=== PATIENT | female | born 1995 | race Caucasian/White ===

== ENCOUNTER 2016-10-27 10:48 | Emergency (ER) | payer BC ==
[2016-10-27 11:14] VITALS: BP 129/73
--- NOTE | 2016-10-27 11:21 | UC ---
Respiratory Complaint HPI - HPI Summary HPI Summary: cough and wheeze not much relief with nebulizer and Mdi---no fevers are chills - History of Current Complaint Chief Complaint: UCRespiratory Stated Complaint: ASTHMA Time Seen by Provider: 10/27/16 11:19 Hx Obtained From: Patient Hx Last Menstrual Period: 10/13/16 ?: No Onset/Duration: Gradual Onset, Lasting Days, Still Present Timing: Constant Severity Initially: Mild Severity Currently: Moderate Character: Cough: Nonproductive Aggravating Factors: Allergens, Exertion Alleviating Factors: Bronchodilator - minimal relief Associated Signs And Symptoms: Positive: Pleuritic Chest Pain, Wheezing - Allergies/Home Medications Allergies/Adverse Reactions: Allergies Allergy/AdvReac Type Severity Reaction Status Date / Time hpv vaccine Allergy Intermediate Hives Uncoded 10/27/16 11:08 Home Medications: Home Medications Ibuprofen [Advil] 800 mg PO Q8HR PRN 10/27/16 [History Confirmed 10/27/16] PMH/Surg Hx/FS Hx/Imm Hx Previously Healthy: No Respiratory History Of: Reports: Asthma - Surgical History Surgical History: None Surgery Procedure, Year, and Place: right eye surgery - Family History Known Family History: Positive: None Family History: no cardio vascular issues in family lineage - Social History Occupation: Student Lives: With Family Alcohol Use: Occasionally Substance Use Type: None Smoking Status (MU): Never Smoked Tobacco Household Exposure Type: Cigarettes Review of Systems Constitutional: Negative Skin: Negative Eyes: Negative ENT: Negative Respiratory: Cough Cardiovascular: Negative Gastrointestinal: Negative Genitourinary: Negative Motor: Negative Neurovascular: Negative Musculoskeletal: Negative Neurological: Negative Psychological: Negative All Other Systems Reviewed And Are Negative: Yes Physical Exam Triage Information Reviewed: Yes Appearance: Well-Appearing, No Pain Distress, Well-Nourished Vital Signs: Initial Vital Signs Temp 98.7 F 10/27/16 11:10 Pulse 102 10/27/16 11:10 Resp 16 10/27/16 11:10 BP 129/73 10/27/16 11:10 Pulse Ox 98 10/27/16 11:10 Vital Signs Reviewed: Yes Eye Exam: Normal Eyes: Positive: Conjunctiva Clear ENT Exam: Normal ENT: Positive: Normal ENT inspection, Hearing grossly normal, Pharynx normal, TMs normal. Negative: Nasal congestion, Nasal drainage, Tonsillar swelling, Tonsillar exudate, Trismus, Muffled/hoarse voice Dental Exam: Normal Neck exam: Normal Neck: Positive: Supple, Nontender, No Lymphadenopathy Respiratory Exam: Normal Respiratory: Positive: Chest non-tender, No respiratory distress, No accessory muscle use, Wheezing Cardiovascular Exam: Normal Cardiovascular: Positive: RRR, No Murmur, Pulses Normal, Brisk Capillary Refill Musculoskeletal Exam: Normal Musculoskeletal: Positive: Strength Intact, ROM Intact, No Edema Neurological Exam: Normal Neurological: Positive: Alert, Muscle Tone Normal Psychological Exam: Normal Skin Exam: Normal UC Diagnostic Evaluation - Laboratory O2 Sat by Pulse Oximetry: 98 Respiratory Course/Dx - Course Course Of Treatment: add, Prednisone, continue albuterol, increase fluids, follow with pcp prn - Differential Dx/Diagnosis Differential Diagnosis/HQI/PQRI: Asthma, Laryngitis, Lower Resp Infection, Sinusitis Provider Diagnoses: Acute exacerbation of chronic bronchospasm Discharge - Discharge Plan Condition: Stable Disposition: HOME Prescriptions: Azithromycin TAB* [Zithromax TAB (Z-KATHLEEN) 250 mg #6 tabs] 2 tab PO .TODAY, THEN 1 DAILY #1 kathleen predniSONE TAB* [Deltasone TAB*] 10 mg PO DAILY #20 tab Patient Education Materials: Acute Bronchitis (ED), Bronchospasm (ED) Referrals: [facility] [place], [place] [facility] [Outside] - If Needed Non Staff,Doctor [Primary Care Provider] -
== END 2016-10-27 11:44 | disposition home or self-care (01) ==
LOC: UCCORT 10:48
DX: J98.01 Acute bronchospasm (principal); Z88.7 Allergy status to serum and vaccine; Z77.22 Contact with and (suspected) exposure to environmental tobacco smoke (acute) (chronic)
CPT/HCPCS: 99212; G0463

== ENCOUNTER 2016-12-17 11:27 | Emergency (ER) | payer BC ==
[2016-12-17 11:36] VITALS: BP 125/58
--- NOTE | 2016-12-17 11:55 | UC ---
Throat Pain/Nasal Priyank HPI - HPI Summary HPI Summary: sore throat x 2 days + nasal congestion, cough, wheezing + fever, chills , - History of Current Complaint Chief Complaint: UCRespiratory Stated Complaint: SORE THROAT,ASTHMA Time Seen by Provider: 12/17/16 11:43 Hx Obtained From: Patient Hx Last Menstrual Period: 12/11/16 ?: No Onset/Duration: Gradual Onset, Lasting Days - 2, Still Present Severity: Moderate Cough: Nonproductive Associated Signs & Symptoms: Positive: Wheezing, Nasal Discharge, Fever. Negative: Dysphagia, FB Sensation, Drooling, Hoarseness, Sinus Discomfort - Allergies/Home Medications Allergies/Adverse Reactions: Allergies Allergy/AdvReac Type Severity Reaction Status Date / Time Azithromycin Allergy Hives Verified 12/17/16 11:37 hpv vaccine Allergy Intermediate Hives Uncoded 12/17/16 11:36 PMH/Surg Hx/FS Hx/Imm Hx Respiratory History Of: Reports: Asthma - Surgical History Surgical History: None Surgery Procedure, Year, and Place: right eye surgery as infant - Family History Known Family History: Positive: None Negative: Diabetes Family History: no cardio vascular issues in family lineage - Social History Alcohol Use: Occasionally Substance Use Type: None Smoking Status (MU): Never Smoked Tobacco Household Exposure Type: Cigarettes Review of Systems Constitutional: Fever, Chills, Fatigue Skin: Negative Eyes: Negative ENT: Sore Throat, Nasal Discharge Respiratory: Cough Cardiovascular: Negative Gastrointestinal: Negative Genitourinary: Negative All Other Systems Reviewed And Are Negative: Yes Physical Exam Triage Information Reviewed: Yes Appearance: Well-Appearing, No Pain Distress, Well-Nourished Vital Signs: Initial Vital Signs Temp 100.4 F 12/17/16 11:32 Pulse 99 12/17/16 11:32 Resp 17 12/17/16 11:32 BP 125/58 12/17/16 11:32 Pulse Ox 100 12/17/16 11:32 Vital Signs Reviewed: Yes Eyes: Positive: Conjunctiva Clear ENT: Positive: Normal ENT inspection, Hearing grossly normal, Pharyngeal erythema, Nasal congestion, Nasal drainage, TMs normal Neck: Positive: Supple, Nontender, No Lymphadenopathy Respiratory: Positive: Chest non-tender, Lungs clear, Normal breath sounds, No respiratory distress Cardiovascular: Positive: RRR, No Murmur, Pulses Normal Throat Pain/Nasal Course/Dx - Differential Dx/Diagnosis Provider Diagnoses: strep pharyngitis Discharge - Discharge Plan Condition: Stable Disposition: HOME Prescriptions: Amoxicillin (*) [Amoxicillin 875 MG (*)] 875 mg PO BID #20 tab Patient Education Materials: Strep Throat (ED) Referrals: Non Staff,Doctor [Primary Care Provider] - If Needed
== END 2016-12-17 12:02 | disposition home or self-care (01) ==
LOC: UCCORT 11:27
DX: J02.0 Streptococcal pharyngitis (principal); J45.909 Unspecified asthma, uncomplicated; Z88.1 Allergy status to other antibiotic agents; Z88.7 Allergy status to serum and vaccine; Z77.22 Contact with and (suspected) exposure to environmental tobacco smoke (acute) (chronic)
CPT/HCPCS: 87651; 99212; G0463